=== PATIENT | female | born 1935 | race Caucasian/White ===

== ENCOUNTER → 2019-06-03 13:11 | Outpatient (CLI) | payer OTHER, SELFPAY ==
--- NOTE | ~2019-06-03 | CT_ITS ---
EXAMINATION: CT abdomen pelvis wo con DATE: 06/03/2019 13:39 INDICATION: Right lower quadrant and groin pain TECHNIQUE: Computed tomography (CT) of the abdomen and pelvis was performed without intravenous contr ast. The dose-length product was 962.97 mGy-cm. Automated exposure control and iterative reconstructi on technique were employed. COMPARISON: CT dated 10/03/2017 FINDINGS: Lung bases are unremarkable. Heart size normal. No pleural or pericardial effusion. Colonic diverticulosis without evidence for diverticulitis. There are punctate calcifications of the pancrea tic head, suspicious for chronic pancreatitis. Colonic diverticulosis without evidence for diverticul itis. The liver, spleen, adrenal glands and kidneys are unremarkable. No abnormal pelvic masses or fluid co llections. There are mildly enlarged inguinal lymph nodes, largest in the right inguinal region measu ring 3.2 cm maximum dimension, likely reactive. There are calcified fibroids in the uterus. No free a ir or free fluid. Moderate lumbar spondylosis. No osteolytic or osteoblastic lesions. IMPRESSION: 1. Inguinal lymphadenopathy, largest in the right inguinal region measuring 3.2 cm, likely reactive. 2: Probable chronic pancreatitis. Reviewed, dictated and finalized at location A. ESTATE INSTRUCTOR
== END ==
PROVIDERS: Visit Provider Emergency Medicine
DX: R10.31 Right lower quadrant pain (principal); R59.0 Localized enlarged lymph nodes
CPT/HCPCS: 74176

== ENCOUNTER → 2019-07-02 10:53 | Outpatient (CLI) | payer OTHER, SELFPAY ==
--- NOTE | ~2019-07-02 | XR_ITS ---
EXAMINATION: XR hip BI wo pelvis INDICATION: Pain in unspecified hip TECHNIQUE: AP view of the pelvis and two views of each hip are obtained. COMPARISON: 06/03/2019 FINDINGS: There is mild bilateral hip osteoarthritis. Bone alignment is normal. There is no fracture. The soft tissues are unremarkable. IMPRESSION: 1. Mild hip osteoarthritis without acute findings. Reviewed, dictated and finalized at location A. CH WRITER
== END ==
PROVIDERS: PCP Emergency Medicine; Visit Provider Emergency Medicine
DX: M16.0 Bilateral primary osteoarthritis of hip (principal)
CPT/HCPCS: 73521

== ENCOUNTER 2019-07-19 11:55 | Outpatient (CLI) | payer OTHER, SELFPAY ==
--- NOTE | ~2019-07-19 | US_ITS ---
EXAMINATION: US thyroid DATE: 07/19/2019 16:24 INDICATION: Thyroid nodules. Hypothyroidism. TECHNIQUE: Multiple ultrasound images of the thyroid were obtained. COMPARISON: None. FINDINGS: The right thyroid lobe measures 7.4 x 3.2 x 2.4 cm. The left thyroid lobe measures 9.4 x 4.9 x 5.1 c m. Well-defined solid wider than tall isoechoic nodule without echogenic foci (TI-RADS 3, mildly adrian picious , FNA if >=2.5 cm, annual followup is >1.5 cm) in the right thyroid measuring 3.7 x 2.7 x 2.9 cm which is mildly increase in size since prior study at which time it measured 3.6 x 2.3 x 2.5 cm. No significant interval change in a similar appearing 4.0 x 2.9 TI-RADS 3 nodule in the left thyroid previously measuring 4.2 x 2.9 cm there is heterogeneous echogenicity and coarsened echotexture throu ghout the surrounding thyroid. IMPRESSION: 1. No significant interval change accounting for differences in technique in bilateral solid TI-RADS 3 nodules measuring 3.7 cm in the right thyroid and 4.0 cm the left thyroid, interval biopsies for ea ch nodule on 12/16/2018 read as consistent with benign follicular nodule . Reviewed, dictated and finalized at location A. IMPRESSION: 1. No significant interval change accounting for differences in technique in bi lateral solid TI-RADS 3 nodules measuring 3.7 cm in the right thyroid and 4.0 c m the left thyroid, interval biopsies for each nodule on 12/16/2018 read as con sistent with benign follicular nodule .
== END 2019-07-19 11:56 | disposition home or self-care (01) ==
PROVIDERS: PCP Emergency Medicine; Visit Provider Internal Medicine Endocrinology, Diabetes & Metabolism
DX: E03.9 Hypothyroidism, unspecified (principal); E11.65 Type 2 diabetes mellitus with hyperglycemia
CPT/HCPCS: 76536

== ENCOUNTER → 2020-05-18 12:18 | Outpatient (CLI) | payer OTHER, SELFPAY ==
--- NOTE | ~2020-05-18 | CT_ITS ---
EXAMINATION: CT soft tissue neck wo con EXAM DATE: 05/18/2020 12:49 INDICATION: Dysphagia . Thyroid partially removed. 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 TECHNIQUE: Spiral CT of the neck was performed without contrast. Axial, coronal and sagittal images were reviewed. The dose-length product (DLP) for this examination was 418.66 mGy-cm. The exposure was tailored according to patient size (auto mA exposure control), and iterative reconstruction (ASIR ) was used as additional dose reduction technique. There is no prior study for comparison. FINDINGS: Mass lesion enlarged left thyroid lobe measuring about 4.5 x 4.5 x 7.8 cm. This is mildly d isplacing the trachea and esophagus toward the right. The airway is widely patent. The remaining port ion of right thyroid lobe measures 5.3 x 3.3 x 2.3 cm. The submandibular and parotid glands are symm etric. There is no cervical lymphadenopathy. There are no masses identified. The superior media stinum is unremarkable. The airway is unremarkable. Parapharyngeal and pre-glottic fat planes are preserved. Limited evaluation of cervical vessels on this noncontrast study. Cataract surgery. Vi sualized sinuses and mastoid air cells are well aerated. Lung apices are clear. There is cervical spondylosis. Advanced cervical arthropathy. IMPRESSION: Goiter. Reviewed, dictated and finalized at location B. ISION STRUCTURAL METAL FITTER IMPRESSION: Goiter.
== END ==
PROVIDERS: Visit Provider Internal Medicine Endocrinology, Diabetes & Metabolism
DX: R13.10 Dysphagia, unspecified (principal); E04.9 Nontoxic goiter, unspecified
CPT/HCPCS: 70490

== ENCOUNTER 2020-08-22 11:02 | Outpatient (CLI) | payer OTHER, MEDICARE, SELFPAY | END 2020-08-22 11:03 | disposition home or self-care (01) | LOC: ANHCOVIDVC 11:02 | PROVIDERS: PCP Internal Medicine | DX: Z23 Encounter for immunization (principal) | CPT/HCPCS: 0001A; 91300 ==

== ENCOUNTER → 2020-09-11 12:37 | Outpatient (CLI) | payer OTHER, SELFPAY ==
--- NOTE | ~2020-09-11 | US_ITS ---
EXAMINATION: US thyroid DATE: 09/11/2020 12:59 INDICATION: Nontoxic single thyroid nodule. TECHNIQUE: Multiple ultrasound images of the thyroid were obtained. COMPARISON: Ultrasound 07/19/2019, neck CT 05/18/2020, chest CT 03/09/2015 FINDINGS: The right thyroid lobe measures 4.5 x 3.4 x 2.8 cm. The left thyroid lobe measures 5.9 x 3.4 x 4.4 c m. The thyroid is diffusely hypoechoic and heterogeneous and nodular without normal intervening pare nchyma. Vascularity is normal. Two biopsies on 12/16/2018 were benign. IMPRESSION: 1. Stable multinodular goiter, likely not clinically significant. Reviewed, dictated and finalized at location B.
== END ==
PROVIDERS: PCP Internal Medicine; Visit Provider Internal Medicine Endocrinology, Diabetes & Metabolism
DX: E04.2 Nontoxic multinodular goiter (principal)
CPT/HCPCS: 76536

== ENCOUNTER 2020-09-12 10:53 | Outpatient (CLI) | payer OTHER, MEDICARE, SELFPAY | END 2020-09-12 10:54 | disposition home or self-care (01) | LOC: ANHCOVIDVC 10:53 | PROVIDERS: PCP Internal Medicine | DX: Z23 Encounter for immunization (principal) | CPT/HCPCS: 0002A; 91300 ==

== ENCOUNTER → 2020-10-27 11:30 | Outpatient (CLI) | payer OTHER, SELFPAY ==
--- NOTE | ~2020-10-27 | XR_ITS ---
EXAMINATION: XR abdomen obstructive series DATE: 10/27/2020 11:59 INDICATION: Abdominal distention (gaseous) TECHNIQUE: Upright and supine views of the abdomen were obtained. COMPARISON: 12/10/2016 FINDINGS: There is no free intraperitoneal gas or evidence of bowel obstruction. There is a moderate volume of colonic stool. Mild lumbar spondylosis is noted. The visualized lung bases are clear. IMPRESSION: 1. Nonobstructive bowel gas pattern. Reviewed, dictated and finalized at location A.
== END ==
PROVIDERS: PCP Internal Medicine; Visit Provider Nurse Practitioner
DX: R14.0 Abdominal distension (gaseous) (principal)
CPT/HCPCS: 74019

== ENCOUNTER → 2021-03-28 09:53 | Outpatient (CLI) | payer OTHER, SELFPAY ==
--- NOTE | ~2021-03-28 | XR_ITS ---
EXAMINATION: XR chest 2V DATE: 03/28/2021 10:13 INDICATION: Shortness of breath. Unspecified atrial fibrillation. TECHNIQUE: Frontal and lateral views of the chest were obtained. COMPARISON: Chest 2 views 03/09/2015 FINDINGS: The chest demonstrates clear lungs without pneumonia, pleural effusion, or pneumothorax. Th e heart size is normal. IMPRESSION: 1. No acute cardiopulmonary disease. Reviewed, dictated and finalized at location B. ENT CARRIER
== END ==
PROVIDERS: PCP Internal Medicine; Visit Provider Internal Medicine
DX: I48.91 Unspecified atrial fibrillation (principal); R06.02 Shortness of breath
CPT/HCPCS: 71046

== ENCOUNTER 2021-04-12 14:18 | Outpatient (CLI) | payer OTHER, SELFPAY ==
--- NOTE | 2021-04-12 15:00 | ECHO_ITS ---
Patient Info Name: Jennifer Portillo Age: 85 years : 1935 Gender: Female Ht: 64 in Wt: 206 lbs BSA: 2.09 m2 HR: 70 bpm BP: 173 / 83 mmHg Heart Rhythm: Atrial Fibrillation Technical Quality: Good Exam Date: 04/12/2021 3:07 PM Exam Location: [facility] Patient Status: Outpatient Admit Date: 04/12/2021 Staff Ordering Physician: Paco Batista DO Filler Spreader: [email or web address] Attending Provider: Paco Batista DO Referring Physician: Lester QUACH; Exam Type: CA echo doppler color flow Study Info Indications - afib Complete two-dimensional, color flow and Doppler transthoracic echocardiogram is performed. Summary 1. Complete two-dimensional, color flow and Doppler transthoracic echocardiogram is performed. 2. Left ventricular chamber dimension is normal. 3. Left ventricular systolic function is normal, estimated at 60-65%. 4. The left ventricular diastolic function is abnormal. 5. E/e' 16 is elevated. 6. Probably atrial fibrillation. 7. Left atrial chamber dimension is moderately enlarged. 8. Right atrial chamber dimension is mildly enlarged. 9. There is mild aortic valve sclerosis. 10. The mitral valve has mildly calcified leaflets and moderately calcified annulus. 11. There is mild mitral valve regurgitation. 12. There is mild tricuspid valve regurgitation. 13. No pulmonary hypertension, estimated pulmonary arterial systolic pressure is 35 mmHg. 14. There is trace pulmonic regurgitation. Left Ventricle E/e' 16 is elevated. Probably atrial fibrillation. Left ventricular chamber dimension is normal. Left ventricular systolic function is normal, estimated at 60-65%. The left ventricular diastolic function is abnormal. Right Ventricle Right ventricular systolic function is normal and with normal TAPSE 1.7 cm. Right ventricular chamber dimension is normal. Left Atria Left atrial chamber dimension is moderately enlarged. Right Atria Right atrial chamber dimension is mildly enlarged. Aortic Valve The aortic valve is trileaflet. There is mild aortic valve sclerosis. There is no aortic valve stenosis. There is no aortic valve regurgitation. Pulmonic Valve There is trace pulmonic regurgitation. Mitral Valve The mitral valve has mildly calcified leaflets and moderately calcified annulus. There is no mitral valve stenosis. There is mild mitral valve regurgitation. Tricuspid Valve There is mild tricuspid valve regurgitation. No pulmonary hypertension, estimated pulmonary arterial systolic pressure is 35 mmHg. Pericardium/Pleural There is no pericardial effusion. Inferior Vena Cava Normal inferior vena cava with >50% collapse upon inspiration consistent with normal right atrial pressure, 5 mmHg. Aorta The aortic root size at the sinus of Valsalva is normal. Left Ventricular Outflow Tract Name Value Normal LVOT 2D LVOT Diameter 2.0 cm LVOT Doppler LVOT Peak Gradient 4 mmHg LVOT Mean Gradient 2 mmHg LVOT VTI 19 cm LVOT VTI/AV VTI Ratio 0.7
== END 2021-04-12 14:19 | disposition home or self-care (01) ==
PROVIDERS: PCP Internal Medicine; Visit Provider Internal Medicine
DX: I48.91 Unspecified atrial fibrillation (principal); I36.1 Nonrheumatic tricuspid (valve) insufficiency; I34.0 Nonrheumatic mitral (valve) insufficiency
CPT/HCPCS: 93306

== ENCOUNTER 2021-07-17 14:11 | Outpatient (CLI) | payer OTHER, SELFPAY ==
[2021-07-17 16:26] LABS: Add Urine Microscopic? YES; Appearance Urine Cloudy (Clear); Bacteria Urine Trace /hpf; Bilirubin Urine Negative (Negative); Color Urine Yellow (Yellow); Glucose Urine UA Negative (Negative); Ketones Urine Negative (Negative); Leukocyte Esterase Ur 3+ LEU/UL (Negative); Mucus Urine Rare /lpf; Nitrate Urine Negative (Negative); Protein Urine Negative (Negative); RBC Urine 0-2 /hpf (0-2); Specific Grav Ur 1.016 (1.001-1.035); Squamous Epithelial Cell Urine Moderate /hpf (Few); Urobilinogen Urine Negative mg/dL (<2.0); WBC Urine 16-20 /hpf
[2021-07-17 16:28] LABS: Blood Urine Negative (Negative)
[2021-07-17 16:33] LABS: Cholesterol 152 mg/dL (0-200); HDL Direct 42 mg/dL; Triglycerides 112 mg/dL (<150)
[2021-07-17 16:34] LABS: Alanine Aminotransferase 20 U/L (4-35); Albumin Level 4.3 g/dL (3.5-5.1); Alkaline Phosphatase 61 U/L (38-126); Anion Gap 8 mmol/L (8-16); Aspartate Amino Transferase 36 U/L (14-36); Bilirubin,Total 0.4 mg/dL (0.2-1.3); Blood Urea Nitrogen 31 mg/dL (7-17); Calcium 9.6 mg/dL (8.4-10.2); Carbon Dioxide 27 mmol/L (22-30); Chloride 102 mmol/L (98-107); Estimated Glomerular Filt Rate 53; Glucose 176 mg/dL (65-110); Potassium 4.3 mmol/L (3.4-5.0); Sodium 137 mmol/L (137-145)
[2021-07-17 16:40] LABS: Creatinine Urine 68.2 mg/dL
[2021-07-17 16:44] LABS: LDL Cholesterol Direct 83 mg/dL
[2021-07-17 16:45] LABS: MALB Creatinine Ratio 19.5 mg/g (0-30); Microalbumin Urine Random 13.3 mg/L (0-16.7)
[2021-07-17 16:54] LABS: Free T4 Free Thyroxine 1.39 ng/mL (0.78-2.19); Vitamin D 25 Hydroxy 95.7 ng/mL
[2021-07-17 17:04] LABS: Thyroid Stimulating Hormone 0.431 uIU/mL (0.465-4.680)
== END 2021-07-17 14:12 | disposition home or self-care (01) ==
LOC: ANHWCLAB 14:14
PROVIDERS: PCP Internal Medicine; Visit Provider Nurse Practitioner Family
DX: E11.65 Type 2 diabetes mellitus with hyperglycemia (principal); E55.9 Vitamin D deficiency, unspecified; F44.89 Other dissociative and conversion disorders; E78.9 Disorder of lipoprotein metabolism, unspecified; E04.2 Nontoxic multinodular goiter; E03.9 Hypothyroidism, unspecified; Z51.81 Encounter for therapeutic drug level monitoring; Z79.899 Other long term (current) drug therapy
CPT/HCPCS: 36415; 80053; 80061; 81001; 82043; 82306; 82607; 84439; 84443; 87086

== ENCOUNTER 2021-10-05 22:26 | Emergency (ER) | payer OTHER, SELFPAY ==
[2021-10-05] VITALS (12 sets, daily range): BP systolic 145–153; BP diastolic 51–80; PULSE 65–77; RESP 14–24; O2SAT 92–100
--- NOTE | ~2021-10-05 | CT_ITS ---
EXAMINATION: CTA chest PE abdomen pel DATE: 10/06/2021 02:00 INDICATION: Left-sided chest pain and shortness of breath, abdominal distention TECHNIQUE: Computed tomography angiography (CTA) of the chest was performed with 100 mL Omnipaque-350 intravenous contrast timed to evaluate the pulmonary arteries. Subsequent postcontrast images of the abdomen and pelvis are obtained. Coronal maximum intensity projection 3D-reconstructions were create d by the technologist. The dose-length product (DLP) was 1824.03 mGy-cm. Automated exposure control a nd iterative reconstruction technique were employed. COMPARISON: 06/03/2019, 03/09/2015 FINDINGS: CTA CHEST: The pulmonary arteries are well-opacified. Respiratory motion artifact somewhat limits ross luation in the lower lung zones. No pulmonary embolism is identified. There is a chronic goiter of th e left thyroid extending into the superior mediastinum. There is mild atelectasis. No pleural effusio n or pneumothorax. No pathologically enlarged thoracic lymph nodes are identified. The heart size is normal. There is moderate thoracic spondylosis. ABDOMEN/PELVIS CT: There is a small sliding hiatal hernia. There is mild nodularity of the liver surf bijal. The spleen, gallbladder, and adrenal glands are normal. There is a 10 mm cystic lesion in the he ad of the pancreas. Hypoattenuating lesions in the kidneys, measuring up to 5 mm on the left, are too small to characterize but likely represent cysts. There is a possible ulcer in the proximal duodenum . No pathologically enlarged abdominal or pelvic lymph nodes are identified. There is no free intrape ritoneal gas or evidence of bowel obstruction. Colonic diverticulosis is present without evidence of diverticulitis. Colonic diverticulosis is present without evidence of diverticulitis. There is modera te lumbar spondylosis. IMPRESSION: 1. No pulmonary embolus identified, sensitivity in the lower lung zones limited by respiratory motion artifact. 2. Possible ulcer of the proximal duodenum. 3. 10 mm cystic lesion in the head of the pancreas. The differential diagnosis includes pseudocyst, i ntraductal papillary mucinous neoplasm (IPMN), mucinous cystic neoplasm (MCN), and the less common se sina cystadenoma and neuroendocrine tumor. Correlate for history of pancreatitis. Follow-up pancreas protocol CT or MRI in two years is recommended. Reviewed, dictated and finalized at location A. IMPRESSION: 1. No pulmonary embolus identified, sensitivity in the lower lung zones limited by respiratory motion artifact. 2. Possible ulcer of the proximal duodenum. 3. 10 mm cystic lesion in the head of the pancreas. The differential diagnosis includes pseudocyst, intraductal papillary mucinous neoplasm (IPMN), mucinous c ystic neoplasm (MCN), and the less common serous cystadenoma and neuroendocrine tumor. Correlate for history of pancreatitis. Follow-up pancreas protocol CT o r MRI in two years is recommended.
--- NOTE | ~2021-10-05 | XR_ITS ---
EXAMINATION: XR chest 2V DATE: 10/05/2021 22:53 INDICATION: Left-sided chest pain TECHNIQUE: PA and lateral views of the chest are obtained. COMPARISON: 03/28/2021 FINDINGS: The lungs are free of acute opacities. There is no pleural effusion or pneumothorax. The ca rdiomediastinal silhouette is normal. There is moderate thoracic spondylosis. IMPRESSION: 1. No acute cardiopulmonary abnormality. Reviewed, dictated and finalized at location F.
--- NOTE | 2021-10-05 22:33 | ECG_ITS ---
Measurements Intervals [place] Rate: 72 P: LA: 0 QRS: -50 QRSD: 94 T: 64 QT: 377 QTc: 413 Interpretive Statements ATRIAL FIBRILLATION LEFT ANTERIOR FASCICULAR BLOCK [QRS AXIS <= -45, QR IN I, RS IN II] POOR R-WAVE PROGRESSION NO PREVIOUS ECG AVAILABLE FOR COMPARISON Electronically Signed On 10-06-2021 9:26:30 CDT by Sintia Han M.D.
[2021-10-05 22:46] LABS: Basophils Percent Auto 0.5 % (0.2-1.2); Eosinophils Absolute Auto 0.2 K/mm3 (0-0.3); Eosinophils Percent Auto 2.2 % (0-4.4); Hematocrit 41.5 % (37.0-47.0); Hemoglobin 13.7 g/dL (12.0-15.0); Immature Granulocyte Absolute 0.02 K/mm3 (0.00-0.031); Immature Granulocyte Percent A 0.3 % (0-0.5); Lymphocytes Absolute Auto 1.99 K/mm3 (0.9-3.2); Lymphocytes Percent Auto 26.3 % (18.3-44.2); Mean Corpuscular Hemoglobin 31.1 pg (26-34); Mean Corpuscular Volume 94.3 fl (80-100); Mean Platelet Volume 10.3 fl (7.4-10.4); Monocytes Absolute Auto 0.9 K/mm3 (0.1-0.6); Monocytes Percent Auto 11.2 % (2.6-8.5); Neutrophils Absolute Auto 4.5 K/mm3 (1.3-6.7); Neutrophils Percent Auto 59.5 % (45.5-73.1); Platelet Count Result 204 k/mm3 (150-375); Red Cell Distribution Width 13.2 % (11.5-14.5); White Blood Count 7.6 K/mm3 (4.5-10.0)
[2021-10-05 22:56] LABS: Alanine Aminotransferase 17 U/L (6-35); Albumin Level 4.3 g/dL (3.5-5.1); Alkaline Phosphatase 67 U/L (38-126); Anion Gap 6 mmol/L (8-16); Aspartate Amino Transferase 32 U/L (14-36); Bilirubin,Total 0.3 mg/dL (0.2-1.3); Blood Urea Nitrogen 28 mg/dL (7-17); Calcium 10.4 mg/dL (8.4-10.2); Carbon Dioxide 32 mmol/L (22-30); Chloride 98 mmol/L (98-107); Estimated CRCL calculation 37 ml/min; Estimated Glomerular Filt Rate 47; Glucose 164 mg/dL (65-110); Lipase 306 U/L (23-300); Potassium 3.9 mmol/L (3.4-5.0); Sodium 136 mmol/L (137-145)
[2021-10-05 22:58] LABS: INR 1.3; Prothrombin Time 15.6 Seconds (11.1-14.7)
[2021-10-05 22:59] LABS: Partial Thromboplastin Time 40.7 SECONDS (22.3-36.8)
[2021-10-05 23:08] LABS: Troponin I < 0.012 ng/mL (0.000-0.034)
--- NOTE | 2021-10-05 23:53 | ED.CHESTPAIN ---
HPI - Chest Pain General Chief Complaint: Chest Pain Stated Complaint: chest pain Time Seen by Provider: 10/05/21 23:07 Source: patient Mode of arrival: ambulatory Limitations: dementia History of Present Illness HPI narrative: This is an 86 year old female who presents for evaluation of left chest pain. Patient states she developed dull aching pain under her left breath just prior to arrival. She reports this pain is constant and occasionally radiates to her left shoulder blade. She states her pain was severe at first, but it has improved. She thought her pain was related to her stomach so she took tums and gas x. She also complains of upper abdominal distension for 1 week. She reports she normally has abdominal distension with eat , and it usually resolves. She has continues to have distension. Her last bowel movement was 2 days ago. She denies fever, chill, nausea, vomiting or cough. She reports shortness of breath at onset of her pain. She rates her pain at 3/10. She denies pain worse with movement or cough. She reports it is hurting now occasionally with breath. Related Data Home Medications Medication Instructions Recorded Confirmed vitamins A,C,L-oleu-ozcmdi 14,320 1 cap PO BID 11/02/20 09/26/21 unit-226 mg-200 unit capsule (ICaps AREDS) cholecalciferol (vitamin D3) 125 125 mcg PO DAILY 12/01/20 09/26/21 mcg (5,000 unit) capsule mecobalamin (vitamin B12) 1,000 1,000 mcg PO DAILY 12/01/20 09/26/21 mcg chewable tablet Allergies Allergy/AdvReac Type Severity Reaction Status Date / Time amoxicillin Allergy Unknown unk Verified 09/26/21 14:34 ciprofloxacin Allergy Unknown unk Verified 09/26/21 14:34 doxycycline Allergy Unknown unk Verified 09/26/21 14:34 hydrocortisone Allergy Unknown unk Verified 09/26/21 14:34 meclizine Allergy Unknown LIP Verified 09/26/21 14:34 SWELLING naproxen Allergy Unknown Unknown Verified 09/26/21 14:34 Sulfa (Sulfonamide Allergy Unknown unk Verified 09/26/21 14:34 Antibiotics) Review of Systems Review of Systems: All systems reviewed & are unremarkable except as noted in HPI and below Constitutional: Constitutional: Reports fatigue and Denies weakness ENT: Denies sore throat Cardiovascular: Cardiovascular: Reports chest pain, Denies rapid heart rate and Reports radiating jaw, neck or arm pain Gastrointestinal: Gastrointestinal: Reports bloating, Reports constipation, Denies nausea and Denies vomiting Genitourinary: Genitourinary: Denies nocturia and Denies dysuria Musculoskeletal: Musculoskeletal: Reports back pain [facility] Past Medical History Medical History (Reviewed 09/26/21 @ 14:00 by Domenic Holman [facility] [place] [place] grade 1 rectocele Bloating Constipation Diabetes mellitus Diverticulosis of large intestine without hemorrhage Irritable bowel syndrome with constipation Pancreatic calcification Primary osteoarthritis of right hip Rectocele Right groin pain Thyroid nodule Unilateral inguinal hernia with obstruction and without gangrene UTI (urinary tract infection) Family History Family History Mother Family history of kidney disease, Onset Age: 52 Family history of diabetes mellitus in first degree relative, Onset Age: 52 Patient's mother is , Onset Age: 52 Diabetes mellitus, Onset Age: 52 Father Family history of diabetes mellitus in first degree relative Family history of coronary artery disease, Onset Age: 66 Patient's father is , Onset Age: 66 Cerebrovascular accident, Onset Age: 66 Family history of heart disease in male family member before age 55, Onset Age: 66 Acute myocardial infarction, Onset Age: 66 Sibling Patient's sister is in good health Diabetes mellitus Family history of malignant neoplasm, Onset Age: 71 Social History Social History
[2021-10-06] VITALS (17 sets, daily range): BP systolic 150–187; BP diastolic 65–122; PULSE 67–88; RESP 12–26; O2SAT 95–98
[2021-10-06 01:13] LABS: D Dimer 0.55 ug/mL (<0.48)
[2021-10-06 03:39] LABS: Troponin I < 0.012 ng/mL (0.000-0.034)
[2021-10-06] MEDS: BELLADONNA ALK/PHENOB ELIX 10 ML, MAG HYDROX/ALUMINUM HYD/SIMETH 30 ML, LIDOCAINE HCL 2... PO (04:24)
[2021-10-06] MEDS: PANTOPRAZOLE SODIUM IV 40 MG VIAL IV PUSH (04:28)
== END 2021-10-06 05:05 | disposition home or self-care (01) ==
PROVIDERS: Emergency Medicine; Emergency Provider General Practice; PCP Internal Medicine
DX: K26.9 Duodenal ulcer, unspecified as acute or chronic, without hemorrhage or perforation (principal); R07.89 Other chest pain; E04.9 Nontoxic goiter, unspecified; E11.9 Type 2 diabetes mellitus without complications; K58.1 Irritable bowel syndrome with constipation; M16.11 Unilateral primary osteoarthritis, right hip; Z79.01 Long term (current) use of anticoagulants; Z79.84 Long term (current) use of oral hypoglycemic drugs; I48.91 Unspecified atrial fibrillation; I44.4 Left anterior fascicular block; K86.9 Disease of pancreas, unspecified
CPT/HCPCS: 36415; 71046; 71275; 74177; 80053; 83690; 84484; 85025; 85380; 85610; 85730; 93005; 96374; 99284; A9270; C9113; Q9967

== ENCOUNTER 2021-10-09 14:30 | Outpatient (CLI) | payer OTHER, SELFPAY ==
--- NOTE | ~2021-10-09 | CT_ITS ---
EXAMINATION: CT brain wo con DATE: 10/09/2021 14:58 INDICATION: Amnesia TECHNIQUE: Computed tomography (CT) of the head was performed without intravenous contrast. The dose- length product was 832.33 mGy-cm. Automated exposure control and iterative reconstruction technique w ere employed. COMPARISON: None FINDINGS: Mild generalized atrophy. There are scattered moderate periventricular and subcortical whit e matter changes, most likely related to small vessel ischemic disease (microangiopathy). No ventricu lomegaly or midline shift. Basilar cisterns are patent. No acute intracranial hemorrhage, infarction, mass or mass effect. There is intracranial atherosclerosis. Paranasal sinuses and mastoids are pneum atized. No depressed skull fractures. IMPRESSION: 1. No acute intracranial abnormality. 2: Chronic age-related findings. Reviewed, dictated and finalized at location B.
== END 2021-10-09 14:31 | disposition home or self-care (01) ==
PROVIDERS: PCP Internal Medicine; Visit Provider Nurse Practitioner
DX: R41.3 Other amnesia (principal)
CPT/HCPCS: 70450

== ENCOUNTER → 2021-10-11 14:22 | Outpatient (CLI) | payer OTHER, SELFPAY ==
--- NOTE | ~2021-10-11 | MR_ITS ---
EXAMINATION: MR lumbar spine wo con DATE: 10/11/2021 15:27 INDICATION: Lumbar radicular pain. TECHNIQUE: Magnetic resonance imaging (MRI) of the lumbar spine was performed without intravenous con trast. Sequences included sagittal T2-weighted FSE, sagittal T2-weighted FS FSE, sagittal T1-weighted FSE, and axial T2-weighted FSE. COMPARISON: None FINDINGS: There is 7 degrees levocurvature of thoracolumbar spine. There is 3 mm anterolisthesis of L 3 on L4 and L4 on L5. There is mild chronic anterior wedging of T11 and T12 vertebral bodies. There a re hemangiomas in L1 and L2 vertebral bodies. There is moderately decreased disc height at T10-T11, m ildly decreased disc height at T11-T12 and L2-L3, and moderately decreased disc height at L3-L4. The distal spinal cord signal intensity is normal. The conus medullaris is at T12. The following disc lev els are specifically discussed: L1-L2: The disc is bulging. There is mild bilateral facet joint osteoarthritis. There is mild right n eural foraminal stenosis. There is mild central canal stenosis. L2-L3: The disc is bulging. There is severe right and moderate left facet joint osteoarthritis. There is mild bilateral neural foraminal stenosis. There is mild central canal stenosis. L3-L4: The disc is bulging and has an annular fissure. There is severe bilateral facet joint osteoart hritis. There is moderate bilateral neural foraminal stenosis. There is mild central canal stenosis. L4-L5: The disc is bulging and has an annular fissure. There is severe bilateral facet joint osteoart hritis. There is mild bilateral neural foraminal stenosis. There is no central canal stenosis. L5-S1: There is a central protrusion. There is severe right and moderate left facet joint osteoarthri tis. There is mild bilateral neural foraminal stenosis. There is mild central canal stenosis. IMPRESSION: 1. Moderate lumbar spondylosis. Reviewed, dictated and finalized at location A.
--- NOTE | ~2021-10-11 | MR_ITS ---
EXAMINATION: MR knee LT wo con DATE: 10/11/2021 15:16 INDICATION: Left knee pain. TECHNIQUE: Magnetic resonance imaging (MRI) of the left knee was performed without intravenous contra st. Sequences included axial PD-weighted FS FSE, coronal PD-weighted FSE and PD-weighted FS FSE, sagi ttal PD-weighted FSE, and sagittal T2-weighted FS FSE. COMPARISON: Left knee radiographs 02/19/2021 FINDINGS: Medial compartment: There is a complex tear involving body and posterior horn of medial meniscus. There is extensive full -thickness cartilage loss of tibial condyle and femoral condyle with cortical remodeling, mild subcho ndral edema-like marrow signal intensity, and osteophytes. Lateral compartment: Lateral meniscus is normal. There is partial-thickness cartilage loss of femoral condyle, deep medial ly with mild subchondral edema-like marrow signal intensity. There is partial-thickness cartilage los s of tibial condyle, deep medially and posterolaterally where there is mild subchondral edema-like ma rrow signal intensity. Osteophytes are noted. Patellofemoral compartment: There is deep partial thickness cartilage loss of patellar median ridge and lateral facet. There is d eep partial thickness cartilage loss of trochlea. Osteophytes are noted. Ligaments and tendons: The anterior cruciate ligament is normal. There is a partial tear of posterior cruciate ligament mark acterized by thickening and increased signal intensity. There are changes of prior sprains of medial collateral ligament and fibular collateral ligament characterized by thickening and increased signal intensity. There is mild patellar tendinopathy. Fluid: There is a moderate-sized knee joint effusion. There is moderate prepatellar and superficial infrapat ellar bursitis. Subcutaneous edema is noted. IMPRESSION: 1. Severe chondrosis of medial compartment and moderate chondrosis of lateral and patellofemoral comp artments. 2. Tear of medial meniscus. 3. Partial tear of posterior cruciate ligament. 4. Moderate-sized knee joint effusion. Reviewed, dictated and finalized at location A. IMPRESSION: 1. Severe chondrosis of medial compartment and moderate chondrosis of lateral a nd patellofemoral compartments. 2. Tear of medial meniscus. 3. Partial tear of posterior cruciate ligament. 4. Moderate-sized knee joint effusion.
== END ==
PROVIDERS: PCP Nurse Practitioner Family; Visit Provider Nurse Practitioner Family
DX: S83.522A Sprain of posterior cruciate ligament of left knee, initial encounter (principal); X58.XXXA Exposure to other specified factors, initial encounter; S83.242A Other tear of medial meniscus, current injury, left knee, initial encounter; M25.462 Effusion, left knee; M47.26 Other spondylosis with radiculopathy, lumbar region
CPT/HCPCS: 72148; 73721

== ENCOUNTER 2023-01-17 15:24 | Outpatient (CLI) | payer OTHER, SELFPAY ==
[2023-01-17 16:05] LABS: Appearance Urine Cloudy (Clear); Bacteria Urine 4+ /hpf; Bilirubin Urine Negative (Negative); Blood Urine Negative (Negative); Color Urine Yellow (Yellow); Glucose Urine UA Negative (Negative); Ketones Urine Negative (Negative); Leukocyte Esterase Ur 1+ LEU/UL (NEGATIVE); Nitrate Urine Positive (Negative); Non Pathogenic Casts 0-2; Protein Urine Negative (Negative); RBC Urine 0-2 /hpf (0-2); Specific Grav Ur 1.011 (1.001-1.035); Squamous Epithelial Cell Urine Few /hpf (Few); Urobilinogen Urine 0.2 mg/dL (<2.0); WBC Urine 21-50 /hpf (0-3); pH Urine 5.5 (5.0-9.0)
[2023-01-17 16:13] LABS: Add Urine Microscopic? YES
[2023-01-17 16:25] LABS: Creatinine Urine 53.7 mg/dL
[2023-01-17 16:29] LABS: MALB Creatinine Ratio 60.5 mg/g (0-30); Microalbumin Urine Random 32.5 mg/L (0-16.7)
[2023-01-17 16:40] LABS: Basophils Percent Auto 0.6 % (0.2-1.2); Eosinophils Absolute Auto 0.1 K/mm3 (0-0.3); Eosinophils Percent Auto 2.1 % (0-4.4); Hematocrit 41.6 % (37.0-47.0); Hemoglobin 13.6 g/dL (12.0-15.0); Immature Granulocyte Absolute 0.01 K/mm3 (0.00-0.031); Immature Granulocyte Percent A 0.2 % (0-0.5); Lymphocytes Absolute Auto 1.52 K/mm3 (0.9-3.2); Lymphocytes Percent Auto 28.4 % (18.3-44.2); Mean Corpuscular HGB Conc 32.7 g/dl (32-36); Mean Corpuscular Hemoglobin 31.8 pg (26-34); Mean Corpuscular Volume 97.2 fl (80-100); Mean Platelet Volume 11.1 fl (7.4-10.4); Monocytes Absolute Auto 0.5 K/mm3 (0.1-0.6); Monocytes Percent Auto 9.2 % (2.6-8.5); Neutrophils Absolute Auto 3.2 K/mm3 (1.3-6.7); Neutrophils Percent Auto 59.5 % (45.5-73.1); Platelet Count Result 181 k/mm3 (150-375); Red Blood Count 4.28 M/mm3 (4.2-5.4); Red Cell Distribution Width 13.4 % (11.5-14.5); White Blood Count 5.4 K/mm3 (4.5-10.0)
[2023-01-17 16:48] LABS: Alanine Aminotransferase 23 U/L (6-35); Albumin Level 4.5 g/dL (3.5-5.1); Alkaline Phosphatase 63 U/L (38-126); Anion Gap 8 mmol/L (8-16); Aspartate Amino Transferase 35 U/L (14-36); Bilirubin,Total 1.3 mg/dL (0.2-1.3); Blood Urea Nitrogen 30 mg/dL (7-17); Calcium 9.3 mg/dL (8.4-10.2); Carbon Dioxide 28 mmol/L (22-30); Chloride 102 mmol/L (98-107); Cholesterol 171 mg/dL (0-200); Estimated Glomerular Filt Rate 47; Glucose 177 mg/dL (65-110); HDL Direct 41 mg/dL; Potassium 3.9 mmol/L (3.4-5.0); Sodium 138 mmol/L (137-145); Triglycerides 100 mg/dL (<150)
[2023-01-17 16:59] LABS: LDL Cholesterol Direct 96 mg/dL
[2023-01-17 17:13] LABS: Vitamin D 25 Hydroxy 96.3 ng/mL
[2023-01-17 17:38] LABS: Vitamin B12 > 1000.0 pg/mL (239-931)
== END 2023-01-17 15:25 | disposition home or self-care (01) ==
PROVIDERS: PCP Internal Medicine; Visit Provider Nurse Practitioner Family
DX: R41.3 Other amnesia (principal); R30.0 Dysuria; E78.5 Hyperlipidemia, unspecified; E11.21 Type 2 diabetes mellitus with diabetic nephropathy; E56.9 Vitamin deficiency, unspecified; N18.9 Chronic kidney disease, unspecified; Z13.0 Encounter for screening for diseases of the blood and blood-forming organs and certain disorders involving the immune mechanism; Z13.21 Encounter for screening for nutritional disorder
CPT/HCPCS: 36415; 80053; 80061; 81001; 82043; 82306; 82607; 85025; 87077; 87086; 87186

== ENCOUNTER 2023-03-13 14:28 | Outpatient (CLI) | payer OTHER, SELFPAY ==
--- NOTE | ~2023-03-13 | MR_ITS ---
EXAMINATION: MR brain/brain stem wo con DATE: 03/13/2023 15:27 INDICATION: Dementia. TECHNIQUE: Magnetic resonance imaging (MRI) of the brain and brainstem was performed without intraven ous contrast. COMPARISON: Head CT 10/09/2021 FINDINGS: There are scattered areas of nonspecific increased T2-weighted signal intensity in the cere bral white matter and berny. There is no intracranial hemorrhage, acute infarction, or abnormal intrac ranial mass lesion. The ventricles are normal in size. The paranasal sinuses are clear. There are lik michell changes of ocular lens replacement surgeries. The mastoid air cells are normal. IMPRESSION: 1. Moderate nonspecific cerebral white matter disease and pontine disease, which likely represents ch ronic small vessel ischemic disease. Reviewed, dictated and finalized at location E. BING INSTRUCTOR IMPRESSION: 1. Moderate nonspecific cerebral white matter disease and pontine disease, whic h likely represents chronic small vessel ischemic disease.
== END 2023-03-13 14:29 | disposition home or self-care (01) ==
PROVIDERS: PCP Family Medicine; Visit Provider Student in an Organized Health Care Education/Training Program
DX: F03.90 Unspecified dementia, unspecified severity, without behavioral disturbance, psychotic disturbance, mood disturbance, and anxiety (principal); R90.82 White matter disease, unspecified
CPT/HCPCS: 70551

== ENCOUNTER 2024-01-24 23:19 | Emergency (ER) | payer OTHER, SELFPAY ==
--- NOTE | ~2024-01-24 | XR_ITS ---
EXAMINATION: XR chest 2V DATE: 01/25/2024 01:20 INDICATION: Battery ingestion. TECHNIQUE: Frontal and lateral views of the chest were obtained. COMPARISON: Chest 2 views 10/05/2021, neck CT 05/18/2020 FINDINGS: There is no pneumonia, pleural effusion or pneumothorax. Cardiomegaly is noted. There is ri ghtward deviation of the trachea at the thoracic inlet secondary to a goiter. IMPRESSION: 1. No radiopaque foreign body. 2. Cardiomegaly. 3. Rightward deviation of the trachea at the thoracic inlet secondary to a goiter. Reviewed, dictated and finalized at location A. IMPRESSION: 1. No radiopaque foreign body. 2. Cardiomegaly. 3. Rightward deviation of the trachea at the thoracic inlet secondary to a goit er.
--- NOTE | ~2024-01-24 | XR_ITS ---
EXAMINATION: XR abdomen/kub 1V DATE: 01/25/2024 00:34 INDICATION: Battery ingestion TECHNIQUE: A supine view of the abdomen on 2 radiographs was obtained. COMPARISON: Abdomen radiograph 10/27/2020 FINDINGS: There are no dilated loops of bowel. There is a large volume of stool in the colon. IMPRESSION: 1. No radiopaque foreign body. 2. Nonobstructive bowel gas pattern. Reviewed, dictated and finalized at location A.
[2024-01-24 23:40] VITALS: BP 174/73; PULSE 77; RESP 20; TEMP 36.2; O2SAT 99
--- NOTE | 2024-01-25 00:12 | PC.NURSE ---
Patient taken to Xray from waiting room.
--- NOTE | 2024-01-25 01:09 | ED.GENADULT ---
HPI - General Adult General Chief complaint: Skin/Abscess/Foreign Body Stated complaint: Possibly swallowed a battery Time Seen by Provider: 01/25/24 01:08 History of Present Illness HPI narrative: Patient is a 88-year-old female who presents emergency department with chief complaint of possibly swallowed a hearing aid battery the patient has prior history of dementia and reports she told her son that she thought a battery was a pill and swallowed it the patient reports she has no complaints at this time Related Data Home Medications Medication Instructions Recorded Confirmed vitamins A,C,C-redo-jtlvbe 4,296 1 cap PO BID 11/02/20 08/29/23 mcg-226 mg-90 mg capsule (ICaps AREDS) mecobalamin (vitamin B12) 1,000 1,000 mcg PO DAILY 12/01/20 08/29/23 mcg chewable tablet cholecalciferol (vitamin D3) 125 125 mcg PO DAILY 07/10/22 08/29/23 mcg (5,000 unit) capsule Allergies Allergy/AdvReac Type Severity Reaction Status Date / Time amoxicillin Allergy Unknown unk Verified 08/01/23 08:36 ciprofloxacin Allergy Unknown unk Verified 08/01/23 08:36 doxycycline Allergy Unknown unk Verified 08/01/23 08:36 hydrocortisone Allergy Unknown unk Verified 08/01/23 08:36 meclizine Allergy Unknown LIP Verified 08/01/23 08:36 SWELLING naproxen Allergy Unknown Unknown Verified 08/01/23 08:36 Sulfa (Sulfonamide Allergy Unknown unk Verified 08/01/23 08:36 Antibiotics) Review of Systems Review of Systems: A 10 system review of systems was completed on the patient and is negative except for what is stated in the HPI. Nursing and ancillary documentation was reviewed. [facility] Past Medical History Medical History Atherosclerosis of aorta Atrial fibrillation [place] grade 1 rectocele Bloating Cellulitis Chronic UTI Constipation Dementia Diverticulosis of large intestine without hemorrhage Duodenal ulcer Dysphagia Dyspnea [place] (hard of hearing) Hypertension Hypothyroidism Irritable bowel syndrome with constipation Mixed hyperlipidemia Mixed stress and urge urinary incontinence Morbid (severe) obesity due to excess calories Multinodular goiter Pancreatic calcification Post menopausal syndrome Primary osteoarthritis of left knee Primary osteoarthritis of right hip Pulmonary HTN Retinopathy Right groin pain 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 Thyroid nodule Type 2 diabetes mellitus with diabetic nephropathy Type 2 diabetes mellitus with hyperglycemia Unilateral inguinal hernia with obstruction and without gangrene Vitamin D deficiency, unspecified Family History Family History Mother Family history of kidney disease, Onset Age: 52 Family history of diabetes mellitus in first degree relative, Onset Age: 52 Patient's mother is , Onset Age: 52 Diabetes mellitus, Onset Age: 52 Father Family history of diabetes mellitus in first degree relative Family history of coronary artery disease, Onset Age: 66 Patient's father is , Onset Age: 66 Cerebrovascular accident, Onset Age: 66 Family history of heart disease in male family member before age 55, Onset Age: 66 Acute myocardial infarction, Onset Age: 66 Sibling Patient's sister is in good health Diabetes mellitus Family history of malignant neoplasm, Onset Age: 71 Social History Social History Smoking status: Never smoker Second hand tobacco smoke exposure: No Alcohol intake: never Substance use: never Substance use type: does not use Lack of Transportation: No Lack of Food: Never True Current Housing: I Have Housing Concerned About Future Housing: No Difficulty Paying Gas/Electric Bills: No Difficulty Paying for Meds: No Currently Unem
== END 2024-01-25 01:29 | disposition home or self-care (01) ==
LOC: ANHED 01-25 01:15
PROVIDERS: Emergency Provider Emergency Medicine; PCP Nurse Practitioner Family
DX: Z03.821 Encounter for observation for suspected ingested foreign body ruled out (principal); F03.90 Unspecified dementia, unspecified severity, without behavioral disturbance, psychotic disturbance, mood disturbance, and anxiety; I70.0 Atherosclerosis of aorta; I48.91 Unspecified atrial fibrillation; I10 Essential (primary) hypertension; I27.20 Pulmonary hypertension, unspecified; E03.9 Hypothyroidism, unspecified; E78.2 Mixed hyperlipidemia; E11.21 Type 2 diabetes mellitus with diabetic nephropathy; E11.319 Type 2 diabetes mellitus with unspecified diabetic retinopathy without macular edema; E55.9 Vitamin D deficiency, unspecified; E66.01 Morbid (severe) obesity due to excess calories; E04.2 Nontoxic multinodular goiter; K58.1 Irritable bowel syndrome with constipation; M17.12 Unilateral primary osteoarthritis, left knee; N39.46 Mixed incontinence; M16.11 Unilateral primary osteoarthritis, right hip; M47.814 Spondylosis without myelopathy or radiculopathy, thoracic region; Z79.84 Long term (current) use of oral hypoglycemic drugs; Z79.01 Long term (current) use of anticoagulants; Z79.899 Other long term (current) drug therapy
CPT/HCPCS: 71046; 74018; 99283